=== PATIENT | female | born 1990 | race Caucasian/White ===

== ENCOUNTER 2017-11-14 05:25 | Emergency (ER) | payer OTHER | END 2017-11-14 07:38 | disposition home or self-care (01) | LOC: FTE 05:25 | DX: M79.89 Other specified soft tissue disorders (principal); E11.9 Type 2 diabetes mellitus without complications; E66.01 Morbid (severe) obesity due to excess calories; F17.210 Nicotine dependence, cigarettes, uncomplicated; Z68.43 Body mass index [BMI] 50.0-59.9, adult | CPT/HCPCS: 76882; 76882-RT; 82962; 93971; 99284-25 ==